=== PATIENT | male | born 1955 | race Caucasian/White ===

== ENCOUNTER → 2017-02-15 | Outpatient (CLI) | payer OTHER ==
[~2017-02-15] MED LIST: ASPI81TA28 PO; ATOR10TA88 PO; GLC/500 PO; LOSA50TA54 PO
[2017-02-15 13:56] LABS: ALT/SGPT 53 U/L (12-78); BLOOD UREA NITROGEN 13 mg/dl (7-18); BUN/CREATININE RATIO 11.4 (10-20); CALCIUM 8.8 mg/dl (8.5-10.1); CARBON DIOXIDE 28 mmol/L (21-32); CHLORIDE 107 mmol/L (98-107); CHOLESTEROL 123 mg/dl (0-200); CHOLESTEROL/HDL RATIO 3.2; GLUCOSE 105 mg/dl (70-99); HDL CHOLESTEROL 38 mg/dl; POTASSIUM 4.3 mmol/L (3.5-5.1); SODIUM 140 mmol/L (136-145)
[2017-02-15 13:57] LABS: ESTIMATED AVERAGE GLUCOSE 117 mg/dl; HA1C FLAG Normal (Normal)
[2017-02-15 14:01] LABS: ALB/GLOB RATIO 1.2 (0.9-2); ALKALINE PHOSPHATASE 86 U/L (45-117); AST/SGOT 27 U/L (15-37); LDL CHOLESTEROL CALCULATED 48 mg/dl; PROSTATE SPECIFIC ANTIGEN 0.306 ng/ml (0.000-4.000); TRIGLYCERIDES 187 mg/dl (0-150); VERY LOW DENSITY LIPOPROT CALC 37 mg/dl
== END | disposition home or self-care (01) ==
LOC: C.LABBC 10:27
PROVIDERS: ATTEND Physician Assistant Medical
DX: Z00.00 Encounter for general adult medical examination without abnormal findings (principal); R73.03 Prediabetes; E78.5 Hyperlipidemia, unspecified; N52.9 Male erectile dysfunction, unspecified

== ENCOUNTER → 2017-04-08 | Outpatient (CLI) | payer OTHER ==
[~2017-04-08] MED LIST changes: +ATOR10TA82 PO; -ATOR10TA88 PO
--- NOTE | 2017-04-10 19:24 | POLYSOMNOGRAPH REPORT ---
CLINICAL DATA: 61-year-old male with BMI of 44.4 referred by AUGUSTINE Ceballos. The patient has a history of sleep apnea with his last baseline study in 2013; he was titrated to CPAP 9 cm of water pressure. He is complaining of feeling tired in the morning and somnolent throughout the day. He needed a repeat titration study but his insurance company required a baseline sleep study prior to considering a CPAP titration study. On the evening of 04/08/2017, a home sleep apnea test was performed using a [employer] type 3 monitor. RECORDING RESULTS: Total recording time was 10 hours. The patient's monitoring time and estimated sleep time was 6 hours. RESPIRATORY DATA: Very severe sleep apnea was documented. The CHETNA was 75.6. There were 285 obstructive, 17 mixed, and 17 central apneic episodes. There were 134 hypopneic episodes. The longest respiratory event was 60 seconds. OXIMETRY DATA: Nocturnal hypoxemia was seen. Oxygen tania was 80%. Mean saturation was 91%. Time below 89% was 55 minutes. HEART RATE DATA: Heart rates ranged from 52-71 beats per minute. SNORING DATA: Snoring was recorded throughout the night. IMPRESSION: Severe sleep apnea/hypopnea with an CHETNA of 75.6 with nocturnal hypoxemia. RECOMMENDATIONS: The patient should be considered for a repeat sleep study with CPAP. RENY
== END | disposition home or self-care (01) ==
LOC: C.NEUR 11:58
PROVIDERS: ATTEND Physician Assistant Medical
DX: E66.01 Morbid (severe) obesity due to excess calories (principal); G47.33 Obstructive sleep apnea (adult) (pediatric); Z68.42 Body mass index [BMI] 45.0-49.9, adult

== ENCOUNTER → 2017-09-20 | Outpatient (CLI) | payer OTHER ==
[2017-09-20 17:30] LABS: ALBUMIN 3.9 gm/dl (3.4-5.0); ALT/SGPT 46 U/L (12-78); BLOOD UREA NITROGEN 16 mg/dl (7-18); CARBON DIOXIDE 26 mmol/L (21-32); CHOLESTEROL 132 mg/dl (0-200); GLUCOSE 93 mg/dl (70-99); POTASSIUM 4.1 mmol/L (3.5-5.1); SODIUM 137 mmol/L (136-145)
[2017-09-20 17:40] LABS: ALKALINE PHOSPHATASE 79 U/L (45-117); AST/SGOT 19 U/L (15-37); LDL CHOLESTEROL CALCULATED 55 mg/dl; TOTAL PROTEIN 7.2 gm/dl (6.4-8.2)
[2017-09-21 08:20] LABS: HEMOGLOBIN A1C 5.8 % (4.5-5.6)
== END | disposition home or self-care (01) ==
LOC: C.LABBC 14:24
PROVIDERS: ATTEND Physician Assistant Medical
DX: K76.0 Fatty (change of) liver, not elsewhere classified (principal); E78.5 Hyperlipidemia, unspecified; J30.9 Allergic rhinitis, unspecified; I10 Essential (primary) hypertension; R73.03 Prediabetes